=== PATIENT | male | born 1990 | race Two or more races ===

== ENCOUNTER 2025-01-04 23:42 | Emergency (ER) | payer BC ==
[~2025-01-04] VITALS: Ht 175.3 cm; Wt 122.5 kg
== END 2025-01-05 04:58 | disposition home or self-care (01) ==
LOC: ER 23:43
DX: S81.012A Laceration without foreign body, left knee, initial encounter (principal); S81.011A Laceration without foreign body, right knee, initial encounter; S61.422A Laceration with foreign body of left hand, initial encounter; X58.XXXA Exposure to other specified factors, initial encounter; Y93.89 Activity, other specified; Y92.832 Beach as the place of occurrence of the external cause; Y99.9 Unspecified external cause status